=== PATIENT | female | born 1965 | race Hispanic/Latino ===

== ENCOUNTER 2018-02-10 16:52 | Emergency (ER) | payer SELFPAY ==
[2018-02-10 17:55] LABS: Bilirubin Negative (Negative); Blood, Urine Trace (Negative); Clarity CLOUDY (Clear); Glucose, Urine (Dipstick) Negative (Negative); Leukocyte Large (Negative); Nitrite Positive (Negative); Protein, Urine (Dipstick) Negative (Neg-Trace); Specific Gravity, Urine 1.005 (1.002-1.036); pH, Urine 6.5 (5.0-9.0)
[2018-02-10 17:57] LABS: Pregnancy Test - Urine (BHCG) Negative (Negative); Pregu Control Background? CLEAR/WHITE (CLR/WHITE); Pregu Control Bar Appear? YES (CONTROL BAR); Specific Gravity 1.005 (1.002-1.036)
[2018-02-10 17:58] LABS: Bacteria/HPF 4+ HPF (None Seen); Hyaline Casts/LPF 0-3 HYALINE CAST LPF (0-3 Hyaline); Pathc Cast-AUWi Flag 0.29 (0-2.49); RBC/HPF 0-3 HPF (0-3); WBC/HPF 21-50 HPF (0-3)
[2018-02-10 18:09] LABS: Hemoglobin 15.1 g/dL (12.0-16.0); Mean Corpuscular HGB CONC 34.3 g/dL (32.0-36.0); Mean Corpuscular Hemoglobin 32.9 pg (27.0-31.0); Platelet Count 96 thou/uL (130-400); RBC Distribution Width 12.3 % (11.5-14.5); White Blood Cell (WBC) Count 5.8 thou/uL (4.8-10.8)
[2018-02-10 18:23] LABS: Band 4 % (5-11); Lymphocytes 14 % (21-51); MDiff Complete? YES; Monocytes 8 % (0-10); Neutrophil 74 % (42-75); PLT Morphology Comment Appears Decreased
[2018-02-10] MEDS ORDERED: Ciprofloxacin 500 MG TAB ONE (18:23)
[2018-02-10] MEDS ORDERED: Ondansetron ODT 8 MG TAB ONE (18:23)
[2018-02-10] MEDS ORDERED: Ibuprofen 800 MG TAB ONE (18:23)
[2018-02-10 18:36] LABS: ALT (SGPT) 100 U/L (8-55); AST (SGOT) 77 U/L (5-34); Albumin 4.2 g/dL (3.5-5.0); Alkaline Phosphatase 166 U/L (40-150); Anion Gap 13 mmol/L (10-20); BUN (Urea Nitrogen) 7 mg/dL (7.0-18.7); Bilirubin, Total 0.8 mg/dL (0.2-1.2); Calc. Creatinine Clearance 0 mL/min (70-130); Calcium 9.3 mg/dL (7.8-10.44); Carbon Dioxide 22 mmol/L (22-29); Chloride 103 mmol/L (98-107); Estimated GFR-MDRD 79; Globulin 3.9 g/dL (2.4-3.5); Glucose 89 mg/dL (70-105); Potassium 3.9 mmol/L (3.5-5.1); Protein, Total 8.1 g/dL (6.0-8.3); Sodium 134 mmol/L (136-145)
== END 2018-02-10 18:29 | disposition home or self-care (01) ==
LOC: ERS 16:52
DX: N12 Tubulo-interstitial nephritis, not specified as acute or chronic (principal); Z87.891 Personal history of nicotine dependence
CPT/HCPCS: 36415; 80053; 81003; 81015; 81025; 85025; 99284

== ENCOUNTER 2018-03-15 21:32 | Emergency (ER) | payer SELFPAY | END 2018-03-15 21:55 | disposition home or self-care (01) | LOC: ERS 21:32 | DX: J30.9 Allergic rhinitis, unspecified (principal); Z87.891 Personal history of nicotine dependence | CPT/HCPCS: 99282 ==

== ENCOUNTER 2018-06-04 19:13 | Emergency (ER) | payer SELFPAY | END 2018-06-04 20:10 | disposition home or self-care (01) | LOC: ERS 19:13 | DX: K04.7 Periapical abscess without sinus (principal); K02.9 Dental caries, unspecified; K03.81 Cracked tooth; F41.9 Anxiety disorder, unspecified; Z87.891 Personal history of nicotine dependence; Z85.42 Personal history of malignant neoplasm of other parts of uterus | CPT/HCPCS: 99283 ==

== ENCOUNTER 2018-09-19 22:08 | Emergency (ER) | payer SELFPAY ==
--- NOTE | 2018-09-19 22:50 | RAD ---
TWO VIEWS CHEST: 09/19/18 HISTORY: Cough. PA and lateral views of the chest is obtained. The lungs are well aerated. No evidence of active intrathoracic disease seen. No evidence of effusion s, pneumonia or pneumothorax seen. IMPRESSION: Unremarkable two views chest. POS: [facility]
== END 2018-09-19 23:06 | disposition home or self-care (01) ==
LOC: ERS 22:08
DX: J06.9 Acute upper respiratory infection, unspecified (principal); F17.210 Nicotine dependence, cigarettes, uncomplicated; F41.9 Anxiety disorder, unspecified; Z71.6 Tobacco abuse counseling
CPT/HCPCS: 71046; 87804; 99406

== ENCOUNTER 2018-11-30 17:05 | Emergency (ER) | payer SELFPAY ==
[2018-11-30 17:37] LABS: Bilirubin Negative (Negative); Blood, Urine Small (Negative); Clarity CLOUDY (Clear); Glucose, Urine (Dipstick) Negative (Negative); Leukocyte Moderate (Negative); Nitrite Positive (Negative); Pregnancy Test - Urine (BHCG) Negative (Negative); Pregu Control Background? CLEAR/WHITE (CLR/WHITE); Pregu Control Bar Appear? YES (CONTROL BAR); Protein, Urine (Dipstick) Negative (Neg-Trace); Specific Gravity 1.014 (1.002-1.036); Specific Gravity, Urine 1.014 (1.002-1.036); Urobilinogen 0.2 mg/dL (0.2-1.0)
[2018-11-30 17:39] LABS: Bacteria/HPF 2+ HPF (None Seen); Hyaline Casts/LPF 4-6 HYALINE CAST LPF (0-3 Hyaline); Pathc Cast-AUWi Flag 0.13 (0-2.49); Squamous Epithelial 0-3 HPF (0-3)
== END 2018-11-30 18:32 | disposition home or self-care (01) ==
LOC: ERS 17:05
DX: N39.0 Urinary tract infection, site not specified (principal); F17.210 Nicotine dependence, cigarettes, uncomplicated; F41.9 Anxiety disorder, unspecified
CPT/HCPCS: 81003; 81015; 81025; 87077; 87086; 87186; 99284

== ENCOUNTER 2019-04-13 22:09 | Emergency (ER) | payer SELFPAY ==
--- NOTE | 2019-04-13 23:12 | RAD ---
XR Elbow Lt 4 View STANDARD History: Elbow pain and swelling Comparison: None. Findings: No acute fracture or malalignment. No significant joint effusion. Soft tissues are unremark able. Impression: No acute osseous abnormality.
== END 2019-04-14 00:24 | disposition home or self-care (01) ==
LOC: ERS 22:09
DX: M70.22 Olecranon bursitis, left elbow (principal); F41.9 Anxiety disorder, unspecified; F17.210 Nicotine dependence, cigarettes, uncomplicated

== ENCOUNTER 2019-06-08 15:45 | Emergency (ER) | payer SELFPAY ==
[2019-06-08 17:30] LABS: Bacteria/HPF 4+ HPF (None Seen); Bilirubin Negative (Negative); Blood, Urine Trace (Negative); Clarity Turbid (Clear); Glucose, Urine (Dipstick) Normal (Negative); Leukocyte 500 Leu/uL (Negative); Nitrite 2+ (Negative); Protein, Urine (Dipstick) 10 mg/dL (Neg-Trace); Urobilinogen Normal mg/dL (Less than 2); WBC/HPF Greater than 50 HPF (0-3)
[2019-06-08 17:57] LABS: Pregnancy Test - Urine (BHCG) Negative (Negative); Pregu Control Background? CLEAR/WHITE (CLR/WHITE); Pregu Control Bar Appear? YES (CONTROL BAR); Specific Gravity 1.019 (1.002-1.036)
== END 2019-06-08 17:49 | disposition home or self-care (01) ==
LOC: ERS 15:45
DX: N39.0 Urinary tract infection, site not specified (principal); F41.9 Anxiety disorder, unspecified; F17.210 Nicotine dependence, cigarettes, uncomplicated
CPT/HCPCS: 81003; 81015; 81025; 87077; 87086; 87186; 99284

== ENCOUNTER 2019-07-28 16:56 | Emergency (ER) | payer SELFPAY ==
[2019-07-28] MEDS ORDERED: Acetaminophen 500 MG TAB ONE (18:37)
[2019-07-28] MEDS ORDERED: Ondansetron ODT 4 MG TAB ONE (18:37)
== END 2019-07-28 19:05 | disposition home or self-care (01) ==
LOC: ERS 16:56
DX: J11.1 Influenza due to unidentified influenza virus with other respiratory manifestations (principal); R11.2 Nausea with vomiting, unspecified; F41.9 Anxiety disorder, unspecified; F17.210 Nicotine dependence, cigarettes, uncomplicated; Z71.6 Tobacco abuse counseling
CPT/HCPCS: 87804; 99406; Q0162

== ENCOUNTER 2019-09-12 20:38 | Emergency (ER) | payer SELFPAY ==
[2019-09-12 21:45] LABS: Bacteria/HPF 4+ HPF (None Seen); Bilirubin Negative (Negative); Blood, Urine Negative (Negative); Clarity Turbid (Clear); Glucose, Urine (Dipstick) Normal (Negative); Leukocyte 250 Leu/uL (Negative); Nitrite 2+ (Negative); Protein, Urine (Dipstick) 10 mg/dL (Neg-Trace); RBC/HPF 0-3 HPF (0-3); Urobilinogen Normal mg/dL (Less than 2); WBC/HPF 21-50 HPF (0-3)
== END 2019-09-12 22:49 | disposition home or self-care (01) ==
LOC: ERS 20:38
DX: N39.0 Urinary tract infection, site not specified (principal); F41.9 Anxiety disorder, unspecified; F17.210 Nicotine dependence, cigarettes, uncomplicated
CPT/HCPCS: 81003; 81015; 87077; 87086; 87186; 99283

== ENCOUNTER 2020-05-28 19:26 | Emergency (ER) | payer SELFPAY ==
[~2020-05-28 19:26] MED LIST: Iopamidol-370 76% 500 ML 1 ML ONE
[2020-05-28] MEDS ORDERED: Acetaminophen 500 MG TAB ONE ×2 (19:57→19:58)
[2020-05-28 20:02] LABS: Hemoglobin 13.8 g/dL (12.0-16.0); Mean Corpuscular HGB CONC 35.3 g/dL (32.0-36.0); Mean Corpuscular Hemoglobin 33.7 pg (27.0-31.0); Mean Corpuscular Volume 95.4 fL (78.0-98.0); RBC Distribution Width 11.3 % (11.5-14.5); White Blood Cell (WBC) Count 10.7 thou/uL (4.8-10.8)
[2020-05-28 20:03] LABS: #Basophils 0.1 thou/uL (0.0-0.2); #Lymphocytes 1.7 thou/uL (1.20-3.40); #Monocytes 0.9 thou/uL (0.11-0.59); #Neutrophils 7.9 thou/uL (1.40-6.50); %Eosinophils 0.5 % (0.0-10.0); %Lymphocytes 15.5 % (21.0-51.0); %Monocytes 8.7 % (0.0-10.0); %Neutrophils 74.4 % (42.0-75.0)
--- NOTE | 2020-05-28 20:06 | RAD ---
Portable upright frontal chest radiograph: 05/28/2020 COMPARISON: 09/19/2018 HISTORY: Flank pain and fever FINDINGS: No pneumothorax or pleural fluid. No focal consolidation or alveolar edema. Heart and media stinal contours are stable. IMPRESSION: No acute findings.
[2020-05-28] MEDS ORDERED: Ketorolac Tromethamine 30 MG/ML VIAL ONE (20:08)
[2020-05-28] MEDS ORDERED: Metoclopramide HCl 10 MG/2 ML VIAL ONE (20:08)
[2020-05-28 20:14] LABS: ALT (SGPT) 43 U/L (8-55); AST (SGOT) 36 U/L (5-34); Alkaline Phosphatase 166 U/L (40-110); Anion Gap 16 mmol/L (10-20); BUN (Urea Nitrogen) 13 mg/dL (9.8-20.1); Bilirubin, Total 0.5 mg/dL (0.2-1.2); Calc. Creatinine Clearance 0 mL/min (70-130); Calcium 9.5 mg/dL (7.8-10.44); Carbon Dioxide 23 mmol/L (22-29); Chloride 103 mmol/L (98-107); Estimated GFR-MDRD 78; Globulin 4.2 g/dL (2.4-3.5); Glucose 90 mg/dL (70-105); Potassium 3.8 mmol/L (3.5-5.1); Protein, Total 8.2 g/dL (6.0-8.3); Sodium 138 mmol/L (136-145)
[2020-05-28 20:20] LABS: Large Platelets SLIGHT; MDiff Complete? YES; Mean Platelet Volume 11.5 fL (7.4-10.4); Platelet Count 115 thou/uL (130-400); Platelet Morphology Comment Appears Decreased; RBC Morphology Normal
[2020-05-28 20:25] LABS: Bacteria/HPF 3+ HPF (None Seen); Bilirubin Negative (Negative); Blood, Urine 1+ (Negative); Clarity Turbid (Clear); Glucose, Urine (Dipstick) Normal (Negative); Ketone, Urine Negative (Negative); Leukocyte 500 Leu/uL (Negative); Nitrite 1+ (Negative); Protein, Urine (Dipstick) 30 mg/dL (Neg-Trace); Specific Gravity, Urine 1.015 (1.002-1.036); Squamous Epithelial 0-3 HPF (0-3); Transitional Epithelial 0-3 HPF (None Seen); Urobilinogen Normal mg/dL (Less than 2); WBC/HPF Greater than 50 HPF (0-3)
--- NOTE | 2020-05-28 20:47 | CT ---
CT abdomen and pelvis: 05/28/2020 HISTORY: Right flank pain with fever TECHNIQUE: Axial CT imaging at 5 mm intervals from the lung bases through the pubic symphysis with IV contrast. Coronal and sagittal reformatted imaging obtained. FINDINGS: The visualized lung bases are unremarkable. No free intraperitoneal air or fluid is seen. The liver, gallbladder, spleen, pancreas, and adrenal glands appear unremarkable. There is no hydronephrosis seen on either side. The enhancement of the renal cortex is slightly hazy bilaterally. There is wall thickening and enhanc ement of the ureters bilaterally. There is mild wall prominence of the urinary bladder. Limited assessment of the bowel without oral contrast demonstrates no evidence for inflammatory wilkins e or obstruction. No abdominal/pelvic abscess formation. The appendix appears unremarkable. No acute osseous abnormality. There is scattered atherosclerotic calcification of the infrarenal abdo larry aorta. No abdominal or pelvic lymphadenopathy. IMPRESSION: No evidence for appendicitis. There is wall prominence and enhancement of bilateral urete rs which suggest inflammatory/infectious process involving the tract bilaterally. Mild wall thickening of the urinary bladder may signify cystitis and subtle hazy appearance of bilateral kidney s may signify pyelonephritis. Correlation with urinalysis suggested.
== END 2020-05-28 22:14 | disposition home or self-care (01) ==
LOC: ERS 19:26
DX: N12 Tubulo-interstitial nephritis, not specified as acute or chronic (principal); R11.2 Nausea with vomiting, unspecified; F41.9 Anxiety disorder, unspecified; F17.210 Nicotine dependence, cigarettes, uncomplicated
CPT/HCPCS: 71045; 74177; 80053; 81003; 81015; 83605; 85025; 87040; 87077; 87086; 87149; 87186; 93005; 96365; 96366; 96375; J1885; J1956; J2765; Q9967

== ENCOUNTER 2021-06-18 16:17 | Emergency (ER) | payer SELFPAY ==
[2021-06-18] MEDS ORDERED: Ketorolac Tromethamine 30 MG/ML VIAL ONE (17:33)
== END 2021-06-18 17:40 | disposition home or self-care (01) ==
LOC: ERS 16:17
DX: K04.7 Periapical abscess without sinus (principal); K02.9 Dental caries, unspecified; Z79.899 Other long term (current) drug therapy
CPT/HCPCS: 96372; 99282; J1885